=== PATIENT | female | born 1945 | race Caucasian/White ===

== ENCOUNTER 2022-05-17 11:23 | Emergency (ER) | payer OTHER, SELFPAY ==
[2022-05-17] VITALS (17 sets, daily range): BP systolic 175–222; BP diastolic 79–100; PULSE 75–86; RESP 17–35; TEMP 36.3; O2SAT 94–97; BMI 32.8
--- NOTE | 2022-05-17 11:33 | DI.RAD.S_ITS ---
PROCEDURE: XR ACUTE ABDOMEN SERIES INDICATIONS: constipation TECHNIQUE: One view chest and two views of the abdomen were acquired. COMPARISON: None. FINDINGS: Surgical changes and devices: Median sternotomy wires are seen. Chest: Lungs are clear. Heart size is mildly enlarged. No pleural effusions. No pneumoperitoneum. Abdomen: Moderate amount of fecal stasis throughout the colon is seen extending to sigmoid colon and rectum. No gross pneumoperitoneum. No suspicious calcifications. Visualized solid organ contours appear normal. Bones: No suspicious bony lesions. IMPRESSION: Moderate constipation and fecal impaction. No gross free air. No acute cardiopulmonary pathology. Dictated by: Larry Segovia M.D. on 05/17/2022 at 12:13 Approved by: Larry Segovia M.D. on 05/17/2022 at 12:14
--- NOTE | 2022-05-17 15:48 | ED.ABDPAIN ---
HPI - Abdominal Pain General Chief Complaint: Abdominal Pain Stated Complaint: Constipation for a couple days Time Seen by Provider: 05/17/22 15:37 Source: patient Mode of arrival: Ambulatory History of Present Illness HPI narrative: Patient feels she is constipated again. Last bowel movement last Monday 3 days ago. No black or bloody stools. Patient states has history of constipation when she gets sick. She had cough cold congestion last week and felt like she was going to get constipated so she took [id number] laxatives without improvement. Is scheduled to have updated colonoscopy next year. Blood pressure noted however it is improving by the time I saw patient 177/81. Patient has not taken her blood pressure medications today. Patient prefers not to have enema. Would like to have GoLYTELY to take home to try for effect. Patient missed her appointment today for her warfarin levels/INR. Agrees to have it done here today Related Data Home Medications Medication Instructions Recorded Confirmed aspirin 81 mg chewable tablet 81 mg PO DAILY 05/17/22 05/17/22 enalapril maleate 10 mg tablet 10 mg PO DAILY 05/17/22 05/17/22 furosemide 20 mg tablet 40 mg PO DAILY 05/17/22 05/17/22 levothyroxine 50 mcg tablet 50 mcg PO DAILY 05/17/22 05/17/22 lovastatin 20 mg tablet 20 mg PO DAILY 05/17/22 05/17/22 omeprazole 20 mg capsule,delayed 20 mg PO DAILY 05/17/22 05/17/22 release potassium chloride 10 mEq 10 meq PO DAILY 05/17/22 05/17/22 tablet,extended release thyroid (pork) 60 mg tablet 60 mg PO DAILY 05/17/22 05/17/22 (Higginson Thyroid) warfarin 5 mg tablet 5 mg PO QDRHS 05/17/22 05/17/22 Allergies Allergy/AdvReac Type Severity Reaction Status Date / Time No Known Drug Allergies Allergy Verified 05/17/22 11:28 Review of Systems Review of Systems Narrative: GENERAL: negative chills, fatigue, malaise, fever, sweats. HEENT: negative sinus pain, ear pain, sore throat RESPIRATORY: negative dyspnea, cough CARDIOVASCULAR: negative chest pain, palpitations GASTROINTESTINAL: negative nausea, vomiting, abdominal pain, positive constipation : negative dysuria, frequency, hematuria MUSCULOSKELETAL: negative muscle or bony pain SKIN: negative rash, skin lesions NEUROLOGIC: negative weakness, numbness ROS Unobtainable: All systems reviewed & are unremarkable except as noted in HPI and below Patient History Social History Smoking Status: Unknown if ever smoked Smoking Status: Unknown if ever smoked alcohol intake frequency: holidays/special occasions only Substance Use Type: does not use Exam Narrative Exam Narrative: GENERAL: in no distress, not toxic not dyspneic HEAD: Normocephalic. EYES: Pupils equal round No scleral icterus. ENT: Mucous membranes moist. NECK: Trachea midline. CARDIOVASCULAR: Regular rate and rhythm without murmurs RESPIRATORY: Clear to auscultation. Breath sounds equal bilaterally. No wheezes, rales, or rhonchi. GASTROINTESTINAL: Abdomen soft, non-tender, bowel sounds present no peritoneal signs no pain out of proportion to exam. No peritoneal signs BACK: No flank tenderness. NEURO: AOx4. SKIN: Warm and dry PSYCH: Not anxious, is cooperative Initial Vital Signs Initial Vital Signs: Vital Signs Temperature 97.3 F L 05/17/22 11:28 Pulse Rate 79 05/17/22 11:28 Respiratory Rate 17 05/17/22 11:28 Blood Pressure 175/94 H 05/17/22 11:28 Pulse Oximetry 95 05/17/22 11:28 Oxygen Delivery Method 05/17/22 11:28 Course Course Course Narrative: No new issues during course of stay Orders Ordered: Discontinued Medications Enalapril Maleate (Enalapril 5 Mg Tablet) 10 mg PO DAILY RUFINO Enalapril Maleate (Enalapril 5 Mg Tablet) 10 mg PO NOW ONE Stop: 05/17/22 16:15 Last Admin: 05/17/22 16:19 Dose: 10 mg Documented By: RB Losartan Potassium (Losartan 25 Mg Tablet) 25 mg PO NOW ONE Stop: 05/17/22 15:48 Last Admin: 05/17/22 16:08 Dose: 25 mg Documented By: RB Polyethylene Glycol/Electrolytes ([id number]/Sod Sulf,Bicarb,Cl/Kcl 4,000 Ml Solution) 2,000 ml PO NOW ONE Stop: 05/17/22 15:45 Last Admin: 05/17/22 16:09 Dose: 2,000 ml Documented By: RB Reevaluation(s) Reevaluation #1: Reviewed x-ray results with patient. No blood work indicated other than doing patient's INR levels as she missed her appointment today. Patient and agree for taking home GoLYTELY, she does not want to try medications here. She will take her daily blood pressure medication now. Return precautions reviewed with her. They desire discharge home. Time: 15:51 Vital Signs Vital signs: Vital Signs - 8 hr 05/17/22 11:28 05/17/22 14:48 05/17/22 14:49 Temperature 97.3 F L Pulse Rate 79 85 86 Respiratory Rate 17 Blood Pressure 175/94 H Pulse Oximetry 95 95 97 Oxygen Delivery Method Room Air 05/17/22 14:49 05/17/22 14:57 05/17/22 14:57 Temperature Pulse Rate 81 Respiratory Rate 35 H Blood Pressure 222/100 H 204/82 H Pulse Oximetry 97 Oxygen Delivery Method 05/17/22 15:00 05/17/22 15:00 05/17/22 15:15 Temperature Pulse Rate 79 79 Respiratory Rate 29 H 25 H Blood Pressure 181/84 H Pulse Oximetry 96 96 Oxygen Delivery Method 05/17/22 15:15 05/17/22 15:17 05/17/22 15:17 Temperature Pulse Rate 80 Respiratory Rate 30 H Blood Pressure 180/79 H 190/88 H Pulse Oximetry 95 Oxygen Delivery Method 05/17/22 15:30 05/17/22 15:30 05/17/22 15:45 Temperature Pulse Rate 79 77 Respiratory Rate 30 H 27 H Blood Pressure 190/81 H Pulse Oximetry 96 96 Oxygen Delivery Method 05/17/22 15:45 05/17/22 16:08 05/17/22 16:00 Temperature Pulse Rate 77 Respiratory Rate Blood Pressure 177/81 H 175/79 H 175/79 H Pulse Oximetry Oxygen Delivery Method 05/17/22 16:00 05/17/22 16:19 05/17/22 16:16 Temperature Pulse Rate 75 79 80 Respiratory Rate Blood Pressure 196/91 H Pulse Oximetry 94 95 Oxygen Delivery Method 05/17/22 16:16 05/17/22 16:20 05/17/22 16:20 Temperature Pulse Rate 79 Respiratory Rate Blood Pressure 213/97 H 196/91 H Pulse Oximetry 95 Oxygen Delivery Method 05/17/22 16:30 05/17/22 16:30 05/17/22 16:45 Temperature Pulse Rate 77 80 Respiratory Rate Blood Pressure 189/88 H Pulse Oximetry 97 96 Oxygen Delivery Method 05/17/22 16:45 Temperature Pulse Rate Respiratory Rate Blood Pressure 182/84 H Pulse Oximetry Oxygen Delivery Method MDM - Abdominal Pain Differential Diagnosis Differential diagnosis: Likely abdominal pain, constipation and small bowel obstruction Lab Data Labs: Lab Results 05/17/22 Range/Units 16:15 PT 30.1 H (10.1-12.7) SECONDS INR 2.6 H (0.9-1.3) APTT 40 H (26-36) SECONDS Imaging Data Abdominal x-ray: Radiologist's Impression: [address] [address] XRay Report Signed Patient: Janae Tena MR#: [id number] : 1945 Acct:[id number] Age/Sex: 76 / F Date of Service: 05/17/22 Loc: ED Accession Number: [id number] ?? Procedure: XR acute abdomen series Ordering Provider: Tomer Teran MD PROCEDURE:? XR ACUTE ABDOMEN SERIES ? INDICATIONS:? constipation ? TECHNIQUE:? One view chest and two views of the abdomen were acquired.? ? COMPARISON:? None. ? FINDINGS:? ? Surgical changes and devices:? Median sternotomy wires are seen. ? Chest:? Lungs are clear.? Heart size is mildly enlarged.? No pleural effusions.? No pneumoperitoneum.? ? Abdomen:? Moderate amount of fecal stasis throughout the colon is seen extending to sigmoid colon and rectum.? No gross pneumoperitoneum.? No suspicious calcifications.? Visualized solid organ contours appear normal.? ? Bones:? No suspicious bony lesions.? ? IMPRESSION:? Moderate constipation and fecal impaction.? No gross free air.? No acute cardiopulmonary pathology. ? ? Dictated by: Larry Segovia M.D. on 05/17/2022 at 12:13 ? ? Approved by: Larry Segovia M.D. on 05/17/2022 at 12:14 ? [facility] Narrative Medical decision making narrative: Appropriate for discharge home. Examined and imaging are reassuring otherwise I clinically is constipation. Patient will call for outpatient follow-up colonoscopy. Patient needed INR levels done today because she missed her appointment. Blood pressure noted because she did not take her blood pressure medication today. Blood pressure medications were given to her today and blood work done. Patient preferred GoLYTELY for home use. Return precautions reviewed with patient and . They desire discharge home Discharge Plan Departure Patient Disposition: Home Clinical Impression: Constipation Instructions: DI for Constipation Activity Restrictions/Additional Instructions: Keep well hydrated. See family doctor for referral to have your updated colonoscopy. Please use provided GoLYTELY for effect/bowel movement. If no improvement may return here for reassessment and possible enema. Or you may take [id number] home enema. Return if worse if any questions or concerns Prescriptions: No Action enalapril maleate 10 mg tablet 10 mg PO DAILY furosemide 20 mg tablet 40 mg PO DAILY lovastatin 20 mg tablet 20 mg PO DAILY omeprazole 20 mg capsule,delayed release(DR/EC) 20 mg PO DAILY potassium chloride 10 mEq tablet extended release 10 meq PO DAILY aspirin [Aspirin Child] 81 mg Tablet,Chewable 81 mg PO DAILY warfarin [Coumadin] 5 mg Tablet 5 mg PO QDRHS levothyroxine 50 mcg Tablet 50 mcg PO DAILY thyroid (pork) [Higginson Thyroid] 60 mg Tablet 60 mg PO DAILY Visit Report Forms: Patient Portal/API
[2022-05-17] MEDS: LOSARTAN 25 MG TABLET PO (16:08)
[2022-05-17] MEDS: PEG3350/SOD SULF,BICARB,CL/KCL 4,000 ML SOLUTION 2000 ML PO (16:09)
[2022-05-17] MEDS: ENALAPRIL 5 MG TABLET 10 MG PO (16:19)
[2022-05-17 16:29] LABS: INR 2.6 (0.9-1.3); Prothrombin Time 30.1 SECONDS (10.1-12.7)
[2022-05-17 16:31] LABS: PTT Partial Thromboplastin Tim 40 SECONDS (26-36)
== END 2022-05-17 17:09 | disposition home or self-care (01) ==
PROVIDERS: Emergency Provider Emergency Medicine
DX: K59.00 Constipation, unspecified (principal)
CPT/HCPCS: 74022; 85610; 85730; 99283

== ENCOUNTER → 2023-04-27 13:08 | Outpatient (CLI) | payer OTHER, SELFPAY ==
[2023-04-27 13:40] LABS: Add Manual Diff / Slide Review NO; Basophils Absolute Auto 0 /uL (0-100); Basophils Percent Auto 0.5 % (0-2); Eosinophils Absolute Auto 100 /uL (0-450); Eosinophils Percent Auto 0.7 % (2-4); Hematocrit 42.8 % (36-46); Hemoglobin 14.6 g/dL (12.0-16.0); Lymphocytes Absolute Auto 1700 /uL (1100-4500); Lymphocytes Percent Auto 23.2 % (25-40); Mean Corpuscular Hemoglobin 30.9 PG (26-34); Mean Corpuscular Volume 90.8 fL (80-100); Monocytes Absolute Auto 1300 /uL (0-900); Neutrophils Absolute Auto 4400 /uL (1500-7000); Neutrophils Percent Auto 58.6 % (50-75); Platelet Count 256 X10^3/uL (150-400); Red Blood Cell Count 4.72 X10^6/uL (4.0-5.2); Red Cell Distribution Width 14.3 % (11.6-14.8); White Blood Cell Count 7.5 X10^3/uL (4.5-11.0)
[2023-04-27 13:49] LABS: Hemoglobin A1C% w Est Avg Glu 5.9 % (4.0-6.0)
[2023-04-27 14:12] LABS: BUN Creatinine Ratio 13.4 (6-22); Blood Urea Nitrogen 11 mg/dL (7-17); Calcium 9.9 mg/dL (8.4-10.2); Carbon Dioxide 29 mmol/L (22-32); Chloride 99 mmol/L (98-107); Estimated Glomerular Filt Rate > 60 mL/min (>60); Glucose 88 mg/dL (80-110); HEMOLYSIS < 15 (0-50); Potassium 3.9 mmol/L (3.4-5.1); Sodium 137 mmol/L (137-145)
[2023-04-27 14:45] LABS: Appearance Urine UA CLEAR; Bilirubin Urine UA NEGATIVE (NEGATIVE); Color Urine UA YELLOW; Glucose Urine UA NEGATIVE (Negative); Ketones Urine UA NEGATIVE (NEGATIVE); Leukocyte Esterase Urine UA NEGATIVE (NEGATIVE); Nitrite Urine UA NEGATIVE (Negative); Occult Blood Urine UA NEGATIVE (Negative); Protein Urine UA NEGATIVE (Negative); Specific Gravity Urine UA <=1.005 (1.000-1.035); Urobilinogen Urine UA 0.2 E.U./dL (0.2)
[2023-04-27 15:03] LABS: Bacteria Urine Occasional (0-1); Culture Indicated Urine Specimen Cultured; RBC Urine None Seen (0-5/HPF); Squamous Epithelial Cell Urine None Seen (0-5/HPF); WBC Urine 0-1/HPF (0-5/HPF)
== END ==
PROVIDERS: PCP Nurse Practitioner Family; Referring Provider Orthopaedic Surgery; Visit Provider Orthopaedic Surgery
DX: Z01.818 Encounter for other preprocedural examination (principal); R73.9 Hyperglycemia, unspecified; Z01.812 Encounter for preprocedural laboratory examination; N39.0 Urinary tract infection, site not specified
CPT/HCPCS: 36415; 80048; 81001; 83036; 85025; 87086; 93005; 93010

== ENCOUNTER 2023-08-22 11:25 | Day surgery (SDC) | payer OTHER, SELFPAY ==
[2023-08-08 09:42] VITALS: BMI 34.0
[2023-08-22] VITALS (11 sets, daily range): BP systolic 131–166; BP diastolic 62–87; PULSE 69–78; RESP 11–20; TEMP 35.9–37.2; O2SAT 92–97; BMI 33.0
--- NOTE | 2023-08-22 06:45 | DI.RAD.S_ITS ---
PROCEDURE: XR KNEE RT 1TO2V INDICATIONS: TKA TECHNIQUE: 2 view(s) of the knee acquired. COMPARISON: [facility] Mike Ruff, MARIA LUISA, XR KNEE ARTHRITIC SERIES BI, 02/16/2023, 13:33. FINDINGS: Bones: Patient is status post knee joint arthroplasty. Hardware components are in expected positions. Visualized bony structures are intact. Soft tissues: Overlying postoperative changes are noted. IMPRESSION: Expected post-operative appearance of a knee arthroplasty. Approved by: Kevyn Quinn M.D. on 08/22/2023 at 20:25
[2023-08-22] MEDS: ACETAMINOPHEN 325 MG TABLET 975 MG PO (13:13)
[2023-08-22] MEDS: LACTATED RINGERS 1,000 ML 42 ML IV ×2 (13:13→17:00)
[2023-08-22] MEDS: CELECOXIB 200 MG CAPSULE PO (13:14)
[2023-08-22 13:50] LABS: INR 1.1 (0.9-1.3); Prothrombin Time 12.5 SECONDS (9.4-12.5)
[2023-08-22 13:57] LABS: Alanine Aminotransferase 77 IU/L (<35); Albumin 4.1 g/dL (3.5-5.0); Albumin Globulin Ratio 1.4 (1.0-2.8); Alkaline Phosphatase 64 U/L (38-126); Aspartate Aminotransferase 58 IU/L (14-36); BUN Creatinine Ratio 11.3 (6-22); Bilirubin Total 0.7 mg/dL (0.2-1.3); Blood Urea Nitrogen 9 mg/dL (7-17); Calcium 8.7 mg/dL (8.4-10.2); Carbon Dioxide 29 mmol/L (22-32); Chloride 106 mmol/L (98-107); Estimated Glomerular Filt Rate > 60 mL/min (>60); Glucose 89 mg/dL (80-110); HEMOLYSIS < 15 (0-50); PTT Partial Thromboplastin Tim 47 SECONDS (25.1-36.5); Potassium 3.8 mmol/L (3.4-5.1); Sodium 139 mmol/L (137-145); Total Protein 7.1 g/dL (6.3-8.2)
[2023-08-22] MEDS: VANCOMYCIN 1,000 MG/200 ML PIGGYBACK 200 MG IV (14:31)
--- NOTE | 2023-08-22 15:59 | PM.PREOP ---
Pre-operative Note Interval Note History & Physical reviewed/Exam performed by Physician: Yes Changes to H&P: No H&P completed within 30 days and has changed as indicated here:: patient has a St. Yosi Valve, bridging with lovenox
--- NOTE | 2023-08-22 16:03 | PM.OP.1 ---
Operative Date/Time/Diagnoses Date of procedure: 08/22/23 Time of procedure: 16:00 Pre-op diagnosis: right knee OA Post-op diagnosis: same Procedure & Clinicians Procedure: right total knee arthroplasty Same procedure as scheduled: Yes Indications: The patient has had progressively worsening right knee pain with radiographic changes consistent with arthritis. Non-operative management has failed and the patient has requested total knee replacement. The risks, benefits and alternatives to surgery were discussed with the patient prior to proceeding. Risks discussed included, but were not limited to, failure to relieve pain, stiffness, infection, nerve damage, deep venous thrombosis, pulmonary embolism, stroke, coma, heart attack, permanent paralysis and , as well as the potential need for eventual revision of the prosthetic. Surgeon: Faith Matthew Compensation Consulting Manager: Enrique Schmidt Anesthesia Type: General Operative Notes Findings: Severe right knee osteoarthritis, good stability, mild bleeding Closure Type: primary Specimen(s): none sent Prosthetic devices, grafts, tissues, transplants, or devices: Size 5 femur, size 4 tibia, +9 poly, 32 x 7-1/2 mm patella Estimated Blood Loss (mL): 250 Blood products transfused: none Tourniquet time (min): 102 Procedure in detail: The patient was seen in the pre-operative area, where the patient identified the right knee as the operative site and this was marked with my initials. The patient received pre-operative antibiotics, and was taken to the operating room and placed on the operative table in the supine position. After satisfactory anesthesia, a part time out was performed. The right leg was encircled with a tourniquet about the proximal thigh, and the leg was prepared from the toes to the tourniquet with ChloroPrep in the usual fashion and draped through sterile drapes. The leg was elevated and exsanguinated with Eschmark bandage and the tourniquet inflated to [250] mmHg pressure. A PA was used during the procedure and was essential for intraoperative retraction and safe implantation of the components. The knee was approached through an approximately 18 cm incision centered over the patella and carried into the knee through a medial parapatellar arthrotomy. Portion of the medial and lateral meniscus was resected. Soft tissue was carefully mobilized around the patella the patella was measured with a caliper. Bone was resected from the patella and the patellar height was reconstituted with up an appropriate sized patellar component. A cover was then placed on the patella. A small amount of additional medial and lateral meniscus was resected. Reed pins were placed for navigation including 2 in the distal femur and the tibial guide was pinned to the proximal tibia and then an out supervisor inventory merchandising was placed for navigation. Data was carefully collected on the knee. The patient was placed her range of motion we did stressed and non stressed range of motion. The knee was meticulously mapped. A plan was taken and optimized. Cori robotic bur was used to do the distal femoral resection. It looked like an appropriate distal femoral cut and the cut was made without difficulty. The rotation was assessed and the appropriate size femoral guide was placed on the distal femur and finishing cuts were made. There was no evidence of notching. The anterior, posterior and chamfer cuts were then made. The posterior osteophytes and soft tissues were then removed. The posterior capsule was injected with part of a mixture of 60 ml 0.25% Marcaine mixed with 20 ml Exparel for post operative pain control. The remainder of this mixture was injected into the capsule and subcutaneous tissues during cement curing. The tibia was prepared and the tibial cutting guide was meticulously navigated in order to optimize the tibial cut. Cut was made without difficulty. The rotation was assessed. The patient was placed in extension residual medial and lateral meniscus as well as any residual bone was carefully resected. [No] additional tibia was resected. Hemostasis was achieved especially posteriorly. Additional local was injected into the posterior capsule. The femoral component trial was placed and the notch was finished. Trial tibial and femoral components were then placed and the knee placed through a range of motion. Range of motion was [0-120], with good stability throughout the range. The trials were then removed, and the tibia was finished. The bone was prepared with pulsatile lavage, and dried with a sponge. Cement was applied and the final prosthetics placed. Excess cement was removed during and after cement curing. A brief Betadine soak was performed. After confirming there was no extruded cement posteriorly, the final tibial insert was placed. The knee was copiously irrigated and the tourniquet deflated. Hemostasis was obtained with the [Aquamantys system]. The capsule was closed with interrupted Vicryl and nonabsorbable suture. The subcutaneous layer was closed with barbed sutures, and the skin with a running 3-0 V-Lock suture and skin hugo. A natan dressing was applied and the patient was taken to recovery having tolerated the procedure well. Complications: none Post-operative Condition: stable Disposition: Acute Care Plan for aftercare: The patient will be maintained on a standard total knee replacement protocol with weight bearing as tolerated. The patient will receive Lovenox starting tomorrow night for 1 dose and then 1 dose on morning, begin warfarin tomorrow a.m. and sequential compression devices for DVT prophylaxis. The patient will be discharged home when safe for the home environment.
--- NOTE | 2023-08-22 16:16 | SUR.OPER ---
Supine on padded OR bed. Pillow under head, arms secured on padded armboards <90 degree abduction. Safety belt across torso. Non-operative leg secured with tape over blanket over lower leg. Operative leg secured in Bernard positioner. Foam padded brace at thigh of operative leg.
[2023-08-22] MEDS: CEFAZOLIN 2 GM/100 ML PREMIX 100 ML IV ×2 (16:36→20:33)
[2023-08-22] MEDS: TRANEXAMIC ACID 1,000 MG VIAL 1000 MG INJ ×2 (16:39→18:30)
[2023-08-22] MEDS: BUPIVACAINE 0.25% (PF) 60 ML, EPINEPHrine 0.3 MG INJ (16:50)
[2023-08-22] MEDS: BUPIVACAINE LIPOSOME 266 MG/20 ML VIAL INJ (16:51)
[2023-08-22] MEDS: LACTATED RINGERS 1,000 ML 100 ML IV (20:33)
[2023-08-22] MEDS: DOCUSATE 100 MG CAPSULE PO (20:34)
[2023-08-22] MEDS: ASPIRIN EC 81 MG TABLET PO (20:34)
[2023-08-22] MEDS: OXYCODONE IR 5 MG TABLET PO (22:39)
[2023-08-23] MEDS: CEFAZOLIN 2 GM/100 ML PREMIX 100 ML IV (03:59)
[2023-08-23 04:15] VITALS: BP 115/55; PULSE 99; RESP 16; TEMP 36.2; O2SAT 95
[2023-08-23] MEDS: PANTOPRAZOLE DR 20 MG TABLET PO (05:40)
[2023-08-23 05:42] LABS: Hematocrit 35.6 % (36-46)
--- NOTE | 2023-08-23 07:00 | P.PN_ITS ---
Subjective Subjective Date Patient Seen: 08/23/23 Time Patient Seen: 07:00 Interval history: Pt lying in bed, said she didn't sleep at all last night d/t pain and noise. She has not been OOB or worked w/ PT yet. She is chronically anticoagulated w/ warfarin d/t St Yosi's valve; warfarin to restart today, and enoxaparin bridge to restart tonight. Pt is unclear about bridging instructions. She has no help at home and will not have consistent help available for about 1 1/2 weeks. Exam Vital Signs (past 8 hours): - 08/22/23 23:08 08/23/23 04:15 Temperature 96.9 F L 97.2 F L Pulse Rate 71 99 H Respiratory Rate 18 16 Blood Pressure 131/62 115/55 L Pulse Oximetry 93 95 Oxygen Flow Rate 1 1 Oxygen Delivery Method Nasal Cannula Oxygen Flow Rate 1 Narrative Exam Narrative: 3/5 strength in hip flexors, quadriceps, hamstrings; 4/5 DF, PF, EHL on right. Sensation to light touch intact throughout RLE; calf soft and compressible. ROSITA not functioning when I entered room, but re-started and was able to function correctly. Minimal bloody drainage. Objective Labs 08/23/23 05:30 08/22/23 13:34 Labs: Laboratory Results - last 24 hr 08/22/23 08/23/23 13:34 05:30 Hgb 12.0 Hct 35.6 L PT 12.5 INR 1.1 APTT 47 H Sodium 139 Potassium 3.8 Chloride 106 Carbon Dioxide 29 BUN 9 Creatinine 0.80 Estimated GFR > 60 BUN/Creatinine Ratio 11.3 Glucose 89 Calcium 8.7 Total Bilirubin 0.7 AST 58 H ALT 77 H Alkaline Phosphatase 64 Total Protein 7.1 Albumin 4.1 Globulin 3.0 Albumin/Globulin Ratio 1.4 [facility] Medical History (Updated 08/08/23 @ 11:55 by Siena Deng RN) Mitral valve stenosis Skin cancer Osteoarthritis Hypothyroidism Pre-diabetes Acid reflux Diverticulosis HLD (hyperlipidemia) HTN (hypertension) Surgical History (Updated 08/23/23 @ 07:05 by Sylvie Kong PA-C) H/O aortic valve replacement (1999) Hx of vein stripping History of total left knee replacement Social History household members: spouse Smoking Status: Former smoker alcohol intake: current Assessment & Plan Post-op Assessment and plan (1) Total knee replacement status: Assessment and Plan narrative: - Pt will need SNF placement d/t social situation and need for enoxaparin bridging w/ warfarin. She had difficulty with this schedule prior to surgery and ended up giving herself enoxaparin on morning of procedure. Recommend SNF at least until bridging completed to avoid issues. - Work w/ PT, WBAT to right leg. - Continue multimodal pain control w/ ice, APAP, and oxycodone. Postoperative Procedures: Procedures Operation Date: 08/22/23 13:15 Actual Procedure Side Surgeon p Total Knee Arthroplasty - Robot Right Faith Matthew MD Postoperative day: 1
[2023-08-23] MEDS: ONDANSETRON 4 MG/2 ML INJ IV (07:59)
--- NOTE | 2023-08-23 08:35 | PT.IIE ---
Current Diagnoses Unilateral primary osteoarthritis, right knee (08/22/23) Presence of unspecified artificial knee joint (08/22/23) Surgery Performed Operation Date: 08/22/23 13:15 Actual Procedures p Total Knee Arthroplasty - Robot(Right) - Faith Matthew MD Surgical History (Last Updated 08/08/23 @ 11:55 by Siena Deng, RN) H/O aortic valve replacement (1999) History of total left knee replacement Hx of vein stripping Medical History (Last Updated 08/08/23 @ 11:55 by Siena Deng RN) Acid reflux Diverticulosis HLD (hyperlipidemia) HTN (hypertension) Hypothyroidism Mitral valve stenosis Osteoarthritis Pre-diabetes Skin cancer Physical Therapy Inpatient Evaluation/Re-Eval M1 PT/OT-IP Prior Functional Status Start: 08/23/23 10:47 Freq: NEEDED Status: Active Protocol: Document 08/23/23 08:35 AB (Rec: 08/23/23 11:01 AB [id number]) Medical Review Prior Functional Status Medical History Reviewed Yes Communication able to make needs known Mobility and Gait pt stated that she was modified independent with all mobilities and ambualtion using a FWW indoors and a 4WW outdoors Social History Household Members spouse Living Arrangements House Number of Floors (Floors) One Floor Number of Stairs To Enter/Railing? 1 step to enter Home Environment High Toilet,Walk in Shower Home Equipment Front Wheel Walker,Four Wheel Walker,Hand Held Shower,Grab Bars In Shower Additional Social History Comment pt stated that she lives by herself, but per nurse, pt lives with spouse but unavailable to assist her at home at this time M2 PT-IP Current Condition Start: 08/23/23 10:47 Freq: NEEDED Status: Active Protocol: Document 08/23/23 08:35 AB (Rec: 08/23/23 11:01 AB [id number]) Physical Therapy Current Condition Current Condition Evaluation Date 08/23/23 Treatment Diagnosis s/p R TKA; difficulty in walking Onset Date 08/22/23 M3 PT-IP Subjective Start: 08/23/23 10:47 Freq: NEEDED Status: Active Protocol: Document 08/23/23 08:35 AB (Rec: 08/23/23 11:01 AB [id number]) Subjective Physical Therapy Visit Type Type Initial Evaluation Visit Start Time 08:35 Visit Stop Time 09:35 Number of OAKES MACHINE OPERATOR Visits 0 Physical Therapy Visit Comments Patient Comments agreeable to do PT Therapy Pain Assessment Pain When Pain Assessed At Rest Pain Present Pain Present Pain Reported Location Right Knee Intensity 6 Scale Used Numeric (0 - 10) Pain Behaviors Guarding,Holding Area,Wincing Pain Management Techniques Apply Cold,Distraction, Modification of Treatment,Re- positioning,Timing of Activity with Medications M4 PT-IP Mobility and Gait Start: 08/23/23 10:47 Freq: NEEDED Status: Active Protocol: Document 08/23/23 08:35 AB (Rec: 08/23/23 11:01 AB [id number]) PT-Bed Mobility Assessment Supine to Sit Supine to Sit Standby Assistance PT-Transfer Assessment Sit to and From Stand Sit to and from Stand Maximum Assistance,1 Person Assistance,2 Person Assistance ,Use of Upper Extremities Equipment Transfer Assistive Device Gait Belt,Front Wheeled Walker Orthotic/Prosthetic Devices or Brace: No Transfers Transfer Destination Chair Transfer Technique Stand Step Pivot Transfer Ability Level of Assist Maximum Assistance,2 Person Assistance,Use of Upper Extremities Comments Mobility Comments pt supine in bed and agreeable to do PT. obtained PLOF and home set up from pt. post-op folder provided and reviewed contents. BP: 114/56. pt completed supine to sit SBA and max cues for techniques. pt was able to sit on EOB CGA. completed sit to stand max A x 1-2 and max cues and needed 2 attempts to complete task. max A for standing balance with (+) R knee buckling needing stabilization from PT and max cues for quads activation. attempted to ambulate but unable and pt needing to sit down on EOB. NAC in room to assist. pt completed sit to stand again max A and max cues and attemped to ambulate but only able to take 2 steps using FWW max A x 2 and max cues and pt needing to sit back on EOB. c/o increase R knee pain. positioned chair next to pt. completed sit to stand from EOB max A x 1-2 and max cues x 2 attempts and step transer to chair using fWW max A x 2 and max cues. continues to have R knee buckling. pt with difficutly following directions and requiring repeated cues with all tasks. positioned pt on the chair. call light and table placed within reach. Gait Assessment Comments Gait Comments unable; only able to take ~ 2 step using FWW max A x 2 and max cues; (+) R knee buckling PT-Balance Assessment Sitting Balance and Reactions Static Sitting Balance Ability Good Dynamic Sitting Balance Ability Good Standing Balance and Reactions Static Standing Balance Ability Poor Dynamic Standing Balance Ability Poor Device Used FWW M5 PT-IP Objective Assessments Start: 08/23/23 10:47 Freq: NEEDED Status: Active Protocol: Document 08/23/23 08:35 AB (Rec: 08/23/23 11:01 [id number]) Orientation Orientation/Cognition Level of Alertness Alert Orientation Name,Place,Situation Safety Awareness Decreased Safety Awareness Memory Description Short Term Impaired Gross Range of Motion Lower Extremity ROM Assessment Right Impaired Impairments R knee flexion: ~ 40 deg R knee extension: ~ 20 deg less to 0 Strength Lower Extremity Strength Assessment Right Impaired Hip 3-/5 Knee 3/5 Sensation Assessment Sensation Gross Sensation Right LE Impaired Sensation Description Numbness Comments Sensation Comments c/o R upper thigh and knee numbness Muscle Tone Muscle Tone WNL Yes M6 PT-IP Treatment Start: 08/23/23 10:47 Freq: NEEDED Status: Active Protocol: Document 08/23/23 08:35 AB (Rec: 08/23/23 11:01 [id number]) Physical Therapy Treatment Exercises Exercises Quad Sets,Heel Slides Education Education Provided Precautions,Weight Bearing Status,Post-Op Packet,Safety M7 PT-IP Assessment and Plan Start: 08/23/23 10:47 Freq: NEEDED Status: Active Protocol: Document 08/23/23 08:35 AB (Rec: 08/23/23 11:01 [id number]) PT Summary Assessment and Plan Potential Rehabilitation Potential Fair Status of Condition at Evaluation Evolving Summary Impairments Pain,ROM,Strength,Balance, Coordination,Sensation,Tone, Cognition,Bed Mobility, Transfers,Gait,Activity Tolerance Assessment Summary pt is a 78 y/o F s/p R TKA POD 1. pt is WBAT on RLE. pt requiring max A x 2 with transfers using FWW and unable to ambulate at this time with (+) R knee buckling. pt will require SNF rehab at this time. will continue to assess progress. Goals Bed Mobility Goal Independent Transfer Goal Minimal Assistance,Front Wheeled Walker Gait Goal Minimal Assistance,Front Wheel Walker Gait Distance 50 Other Goals improve transfers and ambulation using FWW mod I ~ 200 ft up/down 1 step using fWW SBA Days to Meet Goals 5 Frequency of Treatment Frequency Of Treatment Twice a Day Treatment Plan Physical Therapy Treatment Plan Bed Mobility Training,Transfer Training,Gait Training, Therapeutic Exercise,Balance Retraining,Post Op Education, Discharge Planning,Hot or Cold Pack,Neuromuscular Re-ed, Coordination Retraining,Manual Therapy Weight Bearing Status Weight Bearing Status Weight Bear as Tolerated Allowed Weight Bearing Amount (enter % RLE WBAT or #) (%) Recommendations To Nursing Amount of Assist Needed 2 Person Assist Discharge Recommendations PT Discharge Recommendations SNF Rehab Transportation Needs at Discharge Wheelchair/Cabulance
[2023-08-23 08:56] VITALS: BP 124/59
[2023-08-23] MEDS: ACETAMINOPHEN 325 MG TABLET 650 MG PO ×3 (08:56→20:16)
[2023-08-23] MEDS: ENALAPRIL 5 MG TABLET 10 MG PO (08:56)
[2023-08-23] MEDS: FUROSEMIDE 20 MG TABLET 40 MG PO (08:58)
[2023-08-23] MEDS: ATORVASTATIN 20 MG TABLET 10 MG PO (08:58)
[2023-08-23] MEDS: OXYCODONE IR 5 MG TABLET PO ×3 (08:58→19:36)
[2023-08-23] MEDS: POTASSIUM CHLORIDE 10 MEQ TAB PO (08:58)
[2023-08-23] MEDS: WARFARIN 5 MG TABLET PO (08:58)
[2023-08-23] MEDS: DOCUSATE 100 MG CAPSULE PO ×2 (08:59→19:36)
[2023-08-23 09:07] VITALS: BP 124/59; PULSE 73; RESP 16; TEMP 36.6; O2SAT 94
--- NOTE | 2023-08-23 11:13 | OT.IP.EVAL ---
Current Diagnoses Unilateral primary osteoarthritis, right knee (08/22/23) Presence of unspecified artificial knee joint (08/22/23) Surgery Performed Operation Date: 08/22/23 13:15 Actual Procedures p Total Knee Arthroplasty - Robot(Right) - Faith Matthew MD Past Medical History (Last Updated 08/08/23 @ 11:55 by Siena Deng, RN) Acid reflux Diverticulosis HLD (hyperlipidemia) HTN (hypertension) Hypothyroidism Mitral valve stenosis Osteoarthritis Pre-diabetes Skin cancer Surgical History (Last Updated 08/08/23 @ 11:55 by Siena Deng RN) H/O aortic valve replacement (1999) History of total left knee replacement Hx of vein stripping Occupational Therapy Inpatient Evaluation/Re-Eval M1 PT/OT-IP Prior Functional Status Start: 08/23/23 10:47 Freq: NEEDED Status: Active Protocol: Document 08/23/23 08:35 AB (Rec: 08/23/23 11:01 AB [id number]) Medical Review Prior Functional Status Medical History Reviewed Yes Communication able to make needs known Mobility and Gait pt stated that she was modified independent with all mobilities and ambulation using a FWW indoors and a 4WW outdoors Social History Household Members spouse Living Arrangements House Number of Floors (Floors) One Floor Number of Stairs To Enter/Railing? 1 step to enter Home Environment High Toilet,Walk in Shower Home Equipment Front Wheel Walker,Four Wheel Walker,Hand Held Shower,Grab Bars In Shower Additional Social History Comment pt stated that she lives by herself, but per nurse, pt lives with spouse but unavailable to assist her at home at this time M1 PT/OT-IP Prior Functional Status Start: 08/23/23 11:18 Freq: NEEDED Status: Active Protocol: Document 08/23/23 11:18 [facility] (Rec: 08/23/23 11:39 [facility] [id number]) Medical Review Prior Functional Status Medical History Reviewed Yes Communication able to make needs known Mobility and Gait pt stated that she was modified independent with all mobilities and ambulation using a FWW indoors and a 4WW outdoors Activities of Daily Living and IADL's Pt states needing assist for her socks and shoes. Prior Functional Level (Other details) Per pt , pt's will not be available to assist her and that her daughters will not be available as well. Social History Household Members spouse Living Arrangements House Number of Floors (Floors) One Floor Number of Stairs To Enter/Railing? 2 step to enter Home Environment High Toilet,Walk in Shower Home Equipment Front Wheel Walker,Four Wheel Walker,Straight Cane,Hand Held Shower,Grab Bars In Shower M2 OT-IP Current Condition Start: 08/23/23 11:18 Freq: Status: Active Protocol: Document 08/23/23 11:18 [facility] (Rec: 08/23/23 11:39 [facility] [id number]) Occupational Therapy Current Condition Current Condition Evaluation Date 08/23/23 Treatment Diagnosis S/P R TKA Diagnosis Onset Date 08/22/23 M3 OT- IP Subjective and Pain Start: 08/23/23 11:18 Freq: Status: Active Protocol: Document 08/23/23 11:18 [facility] (Rec: 08/23/23 11:39 [facility] [id number]) OT- Subjective Occupational Therapy Visit Type Type Initial Evaluation Visit Start Time 10:35 Visit Stop Time 11:13 Occupational Therapy Visit Comments Patient Comments Pt agreed to try to stand up. Patient/Caregiver Goals To go to skilled rehab. OT Pain Assessment Pain When Pain Assessed At Rest Pain Present Pain Present Pain Reported Location Right Knee Intensity 7 Scale Used Numeric (0 - 10) M4 OT- IP ADL's Start: 08/23/23 11:18 Freq: Status: Active Protocol: Document 08/23/23 11:18 [facility] (Rec: 08/23/23 11:39 [facility] [id number]) OT [id number] Comments OT Self-Feeding Comments Not at meal time. OT ADL-Grooming General Evaluation Grooming Ability Standby Assistance Areas Needing Assistance Retrieving/Set-up of Grooming Items Comments OT Grooming Comments Pt able to go grooming needs while seated on the recliner. OT ADL-Oral Care General Eval Oral Care Ability Independent Comments Oral Care Comments While seated. OT ADL-Dressing General Eval Lower Body Dressing Ability Total Assistance Areas Needing Assistance Socks Comments OT Dressing Comments Able to show and demonstrate use of deck engineer and sock aid to assist for LB dressing needs. OT ADL-Toileting Comments OT Toileting Comments Pt would benefit from BSC at home to use. OT ADL-Bathing Comments OT Bathing Comments Sponge bath more appropriate at this time or us of rolling shower chair due decreased mobility and balance. M5 OT- IP IADL's Start: 08/23/23 11:18 Freq: Status: Active Protocol: Document 08/23/23 11:18 [facility] (Rec: 08/23/23 11:39 [facility] [id number]) OT-Instrumental Activities of Daily Living Deficits IADL Deficits Identified Deficits Home Safety Awareness Awareness of Need for Assistance at Home Good Awareness Home Safety Comments Pt a little groggy at this time and if having to go home will need 12/12 assist for all needs. Medication Management Medication Management Caregiver Administers Money Management Money Management Caregiver Provides Assistance Meal Preparation Meal Preparation Caregiver Provides Assist Solar Project Manager Solar Project Manager Caregiver Provides Assist M6 OT- IP Functional Cognition Start: 08/23/23 11:18 Freq: Status: Active Protocol: Document 08/23/23 11:18 [facility] (Rec: 08/23/23 11:39 [facility] [id number]) Cognitive Factors Limiting Selfcare Function Cognitive Ability Level of Alertness Confusional State,Drowsy Patient Orientation Name Attention Span Ability Capable of Focused Attention, Unable to Sustain Attention Ability to Follow Commands Able to Follow One Step Commands with Increased Time, Able to Follow One Step Commands with Repetition Memory Description Short Term Impaired Cognitive Comments Cognitive Assessment Comments Pt a bit groggy and needing step by step commands to follow at this time. Pt states did not sleep at all last night. Pt did not recall from just seeing PT of what to do for safety and process on trying to stand up from the recliner. Pt needing step by step commands for being able to come to stand. OT- Vision and Hearing OT- Hearing Assessment OT- Hearing Assessment WFL OT- Vision Assessment Visual Acuity Glasses All The Time Visual Attentiveness WFL Occular Pursuits WFL M7 OT- IP Mobility and Balance Start: 08/23/23 11:18 Freq: Status: Active Protocol: Document 08/23/23 11:18 [facility] (Rec: 08/23/23 11:39 [facility] [id number]) OT-Transfer Assessment Sit to and From Stand Sit to and from Stand Maximum Assistance,Total Assistance,1 Person Assistance Devices Transfer Assistive Devices Gait Belt,Front Wheeled Walker Comments Mobility Comments MAX vc for safety cues, MAX/ Total assist to get pt to stand and not able to stand all the way up at this time, as pt buckling. OT- Balance Assessment Sitting Balance and Reactions Static Sitting Balance Ability Good Dynamic Sitting Balance Ability Fair Standing Balance and Reactions Static Standing Balance Ability Poor M8 OT- IP Objective Assessments Start: 08/23/23 11:18 Freq: Status: Active Protocol: Document 08/23/23 11:18 [facility] (Rec: 08/23/23 11:39 [facility] [id number]) OT Gross Range of Motion Upper Extremity Range of Motion Assessment Within Functional Limits M9 OT- IP Assessment and Plan Start: 08/23/23 11:18 Freq: Status: Active Protocol: Document 08/23/23 11:18 [facility] (Rec: 08/23/23 11:39 [facility] [id number]) OT Summary Assessment and Plan Potential Rehabilitation Potential Good Analytic Complexity at Evaluation Moderate Summary OT Impairments Pain,Strength,Balance, Functional Cognition, Functional Mobility,Grooming, Dressing,Toileting,Bathing, Toilet Transfers,Shower Transfers,Activity Tolerance Progress Towards Goals Slow Progress due to Pain,Slow Progress due to Medical Issues,Slow Progress due to Activity Tolerance,Slow Progress due to Cognition Assessment Summary Pt MOD complexity and main barriers are pain, steps, groggy and having short term memory issues, and now needing extensive two person assist for all mobility and most of her ADL needs and RLE buckling when trying to come to stand at this time. Pt will benefit from skilled rehab rehab to continue to work on safety cues , practice use of equipment needs, and to help increase overall independence so that her family able to safely assist her at home. At this time her current level is too great for her family to be able to assist her safely. Goals Self-Feeding Goal Independent Grooming Goal Independent Dressing Goal Minimal Assistance,Upholstery Estimator, Sock Aid Toileting Goal Standby Assistance Bathing Goal Minimal Assistance Toilet Transfer Goal Contact Guard Assistance Shower Transfer Goal Minimal Assistance Days to Meet Goals 20 Frequency of Treatment Frequency Of Treatment Once a Day Treatment Plan OT Treatment Plan ADL Training,Functional Cognition Training,Functional Mobility,Patient/Family Education,Discharge Planning Discharge Recommendations OT Discharge Recommendations SNF Rehab Home Equipment Needs LB dressing equipment, BSC Transportation Needs at Discharge Wheelchair/Cabulance
[2023-08-23 12:39] VITALS: BP 122/40; PULSE 75; RESP 16; TEMP 37.4; O2SAT 96
--- NOTE | 2023-08-23 13:00 | PT.IPTN ---
Current Diagnoses Unilateral primary osteoarthritis, right knee (08/22/23) Presence of unspecified artificial knee joint (08/22/23) Surgery Performed Operation Date: 08/22/23 13:15 Actual Procedures p Total Knee Arthroplasty - Robot(Right) - Faith Matthew MD Physical Therapy Treatment Note M2 PT-IP Current Condition Start: 08/23/23 10:47 Freq: NEEDED Status: Active Protocol: Document 08/23/23 08:35 AB (Rec: 08/23/23 11:01 AB [id number]) Physical Therapy Current Condition Current Condition Evaluation Date 08/23/23 Treatment Diagnosis s/p R TKA; difficulty in walking Onset Date 08/22/23 M3 PT-IP Subjective Start: 08/23/23 10:47 Freq: NEEDED Status: Active Protocol: Document 08/23/23 13:00 AB (Rec: 08/23/23 15:15 AB [id number]) Subjective Physical Therapy Visit Type Type Treatment Note Visit Start Time 13:00 Visit Stop Time 13:35 Number of GIFT SHOP CLERK Visits 0 Physical Therapy Visit Comments Patient Comments agreeable to do PT Therapy Pain Assessment Pain When Pain Assessed At Rest Pain Present Pain Present Pain Reported Location Right Knee Intensity 6 Scale Used Numeric (0 - 10) M4 PT-IP Mobility and Gait Start: 08/23/23 10:47 Freq: NEEDED Status: Active Protocol: Document 08/23/23 13:00 AB (Rec: 08/23/23 15:15 AB [id number]) PT-Bed Mobility Assessment Sit to Supine Sit to Supine Maximum Assistance,2 Person Assistance,Head of Bed Elevated,Bedrails Scooting Scooting Up and Down in Bed Maximum Assistance PT-Transfer Assessment Sit to and From Stand Sit to and from Stand Maximum Assistance,1 Person Assistance,2 Person Assistance ,Use of Upper Extremities Equipment Transfer Assistive Device Gait Belt,Front Wheeled Walker Orthotic/Prosthetic Devices or Brace: No Transfers Transfer Destination Bed Transfer Technique Stand Step Pivot Transfer Ability Level of Assist Maximum Assistance,1 Person Assistance,2 Person Assistance ,Use of Upper Extremities Comments Mobility Comments pt sitting on chair. daughter and spouse in room. pt completed sit to stand from chair max A x 1-2 and max cues needing 2 attempts to be able to stand upright. pt able to take steps ~ 2 ft using FWW max A x 1-2 and max cues and needing to sit down requiring max A for controlled descent to chair. chair follow needed . pt required assist with FWW management, weight shifting and R knee stabilization to prevent knee buckling. pt stated that she will stay up on the chair. pt completed LAQs on RLE x 5 reps with 5 sec hold. educated pt regarding HEP. pt then requested to go back to bed. completed sit to stand from the chair max A x 1-2 and max cues and step transfer to chair using FWW max A x 2 and max cues. completed sit to supine max A x 2 and max cues. positioned pt in bed. call light and table placed within reach. informed nurse regarding pt's mobility level. Gait Assessment Gait Gait Assistance Required: Maximum Assistance,1 Person Assist,2 Person Assist Distance (Feet) 2 Able to Maintain Weight Bearing Status Yes During Gait Assistive Devices Assistive Device Gait Belt,Front Wheeled Walker Orthotic/Prosthetic Devices or Brace: No Gait Deviations General Gait Pattern Antalgic,Decreased Stride Length,Decreased Feet Clearance Factors Limiting Gait Function Factors Limiting Gait Function Decreased Activity Tolerance, Decreased Strength,Difficulty Following Directions,Limited Range of Motion,Pain,Poor Balance,Poor Safety Awareness M5 PT-IP Objective Assessments Start: 08/23/23 10:47 Freq: NEEDED Status: Active Protocol: Document 08/23/23 08:35 AB (Rec: 08/23/23 11:01 AB [id number]) Orientation Orientation/Cognition Level of Alertness Alert Orientation Name,Place,Situation Safety Awareness Decreased Safety Awareness Memory Description Short Term Impaired Gross Range of Motion Lower Extremity ROM Assessment Right Impaired Impairments R knee flexion: ~ 40 deg R knee extension: ~ 20 deg less to 0 Strength Lower Extremity Strength Assessment Right Impaired Hip 3-/5 Knee 3/5 Sensation Assessment Sensation Gross Sensation Right LE Impaired Sensation Description Numbness Comments Sensation Comments c/o R upper thigh and knee numbness Muscle Tone Muscle Tone WNL Yes M6 PT-IP Treatment Start: 08/23/23 10:47 Freq: NEEDED Status: Active Protocol: Document 08/23/23 13:00 AB (Rec: 08/23/23 15:15 AB [id number]) Physical Therapy Treatment Education Education Provided Safety M7 PT-IP Assessment and Plan Start: 08/23/23 10:47 Freq: NEEDED Status: Active Protocol: Document 08/23/23 13:00 AB (Rec: 08/23/23 15:15 AB [id number]) PT Summary Assessment and Plan Potential Rehabilitation Potential Fair Summary Impairments Pain,ROM,Strength,Balance, Coordination,Sensation,Tone, Cognition,Bed Mobility, Transfers,Gait,Activity Tolerance Progress Towards Goals Slow Progress due to Pain,Slow Progress due to Medical Issues,Slow Progress due to Activity Tolerance Assessment Summary pt continues to require max A x1-2 for mobility and unable to ambulate much but completed ~ 2 ft max A x 1-2 using FWW and max cues. pt continues to have R knee buckling during standing/ambulation requiring cues for quads activation and assist for stability. pt will require SNF rehab to improve overall strength and mobility independence. Goals Bed Mobility Goal Independent Transfer Goal Minimal Assistance,Front Wheeled Walker Gait Goal Minimal Assistance,Front Wheel Walker Gait Distance 50 Other Goals improve transfers and ambulation using FWW mod I ~ 200 ft up/down 1 step using fWW SBA Days to Meet Goals 5 Frequency of Treatment Frequency Of Treatment Twice a Day Treatment Plan Physical Therapy Treatment Plan Bed Mobility Training,Transfer Training,Gait Training, Therapeutic Exercise,Balance Retraining,Post Op Education, Discharge Planning,Hot or Cold Pack,Neuromuscular Re-ed, Coordination Retraining,Manual Therapy Weight Bearing Status Weight Bearing Status Weight Bear as Tolerated Allowed Weight Bearing Amount (enter % RLE WBAT or #) (%) Recommendations To Nursing Amount of Assist Needed 2 Person Assist Discharge Recommendations PT Discharge Recommendations SNF Rehab Transportation Needs at Discharge Wheelchair/Cabulance
--- NOTE | 2023-08-23 14:38 | CM.DANOTE ---
Initial DCP Assessment Visit Note Reviewed EMR and team rounds for pt's medical status and initial anticipated d/c needs. Met with pt, spouse, and dtr at bedside to introduce self and role. Per Ortho, they anticipated pt would need SNF rehab at time of d/c due to her 's limitations in the ability to care for her postoperatively. NIGHT CLERK AUDITOR sent referral to [facility] for their review, will monitor for acceptance or not. If she does get accepted, the facility will provide transport. Payor: Aida Loving Attending: Dr. Faith Matthew Pt is a 78 year-old F post-op day 1 placed in a OPB following her R-total knee arthroplasty. She uses a cane and a walker at baseline at home, lives with her , and has a dtr who is very involved in her care coordination and support needs. Due to family's inability to help her with her postoperative care needs, they are requesting SNF rehab, as also supported by PT/OT recommendations. Pt does have all other supportive care DME in the home for post-rehab discharge. [facility]'s preference [facility], will update pt/family once we have a decision on acceptance. DCP will continue to follow and assist with SNF coordination and transport at time of d/c. Discharge Planning/Care Management CM Discharge Assessment Start: 08/23/23 14:34 Freq: Status: Active Protocol: Document 08/23/23 14:34 DPL (Rec: 08/23/23 14:37 DPL [id number]) Discharge Planning Assessment Assigned Dedicated Regional Driver AINSLEY Carrasquillo Advance Directives? Yes Advance Directives on File No History Provided By Patient,Family Member,Medical Record Has Patient been admitted in last 30 No days? Prior Living Arrangements House Household Members spouse Type of transporation used prior to Relies on Others admit Independent with ADL's No: modified independent Is patient alert and oriented? Yes Needs Assistance With Home Chores / Shopping Caregiver for Another No DME Already Rented / Owned Elevated Toilet Seat,FWW / Walker,Cane Patient/Family Preference [facility] Facility Barriers to Discharge No Discharge Plan [facility] Facility Community Services Physical Therapy,Occupational Therapy Transportation Arrangement Facility Referrals Initiated [facility] Additional Comment [facility] is reviewing If patient plan is home with home health No : Has signed face to face form been completed? If patient plan is SNF: Has PASSR been No completed? Has Agency SNF been contacted Yes Whiteboard Updated in Patient Room with Yes name and ext. # of Dedicated Regional Driver Review Status In Process Please Provide Date Initial DC 08/23/23 Assessment Was Performed Pre-Anesthesia Assessment Start: 08/08/23 09:42 Freq: Status: Active Protocol: Document 08/08/23 09:42 CAB (Rec: 08/08/23 10:35 CAB [id number]) Pre-Anesthesia Assessment Patient Information Reviewed Via Phone Assessment Assessment Completed With Patient Diagnostic Results BMP/CMP,CBC,EKG,Urinalysis Comment Labs/EKG @ 04/27/23, more recent through [facility] Primary Care Provider Aidee Niño Seen Specialist in Last 12 Months Yes Specialist Seen Banquet Captain,Orthopedist Primary Language [employer] Supervisor Required No Height 172.72 cm Weight 101.605 kg Body Mass Index (BMI) 34.0 Hearing Ability Normal Visual Assist Glasses Dentition Type Full- Upper & Lower Barriers to Learning None Hx Anesthesia Reactions No Hx Family Anesthesia Reaction Yes: Daughter - severe PONV Hx Malignant Hyperthermia No Hx Blood Transfusions No Anesthesia Review Requested Yes: Surgeon requested re: Cardiac Political Advisor No alcohol intake current alcohol intake frequency a few times a week Smoking Status Former smoker how long ago did patient quit smoking A good 20 years ago Substance Use Type does not use Pain Present Pain Reported Musculoskeletal Symptoms Abnormal Gait,Difficulty Walking,Joint Pain History of Falling (Recent or History of Yes ) Patient is completely paralyzed or No completely immobile Prosthesis or Orthotic Device Cane,Front Wheel Walker Mental Status Oriented to own ability Is patient on oxygen? No Does patient have RODRÍGUEZ/SOB No Hx Sleep Apnea No Currently Taking a Beta Scar No Hx Chest Pain No Hx SOB No Hx Syncope or Dizziness No Anti-Coagulant Therapy Yes: Warfarin-hold 08/17/23 per PCP w/bridging instructions Has a Banquet Captain Yes Cardiac Testing No Hx Pacemaker/ICD No Pacemaker Rep Required? No Cardiac Clearance Received Not Applicable Diet Type At Home Regular Dysphagia No Gastrointestinal Symptoms Reflux Bladder Pattern Incontinent Urinary Catheter Present No Hx Urinary Self Catheterization No Diabetes No HgbA1C 5.9 Date 04/27/23 Patient No Lactating No Hx Drug Resistant Organism No Presence of External or Internal Medical Yes: Mitral valve, left knee Devices prosthesis Received a COVID vaccine? No Marital Status Lives With spouse Current Living Arrangements House Number of Floors (Floors) One Floor Support System Child/Children,Spouse Does the Patient Have Assistance After Yes: Daughters will stay w/pt Surgery to assist @ DC Patient Discharge Plan Description Return Home Comment Pt not advised on length of stay per surgeon Feels Safe in Current Environment Yes Been Physically Hurt or Threatened By a No Person in Current Environment Do you have thoughts of harming yourself None or others? Are you currently considering suicide? No Do you have a plan to hurt yourself or No Plan others? Do You Have Any Spiritual Beliefs That No May Affect Your HC Choices? Do You Have Any Cultural Practices That No May Affect Your HC Choices? Comment Muslim Who Can We Speak to About Patient's Care Family, friends Identifying Code for Release of Patient Declines to issue Information Health Care Proxy/Next of Kin Norm () Anni ( daughter) Health Care Proxy Phone Number Norm: [phone] Anni: [phone] Emergency Contact Name Norm () Anni ( daughter) Emergency Contact Phone Number Norm: [phone] Anni: [phone] Advance Directives? Yes Advance Directives on File No Requested Patient Bring Advanced Yes Directives DOS Power of Supervisor Computer Operations Yes Power of Supervisor Computer Operations Name Norm Power of Supervisor Computer Operations PAC Instructions Do not shave/clip surgical site,Durable medical equipment ,Medications to take/avoid, Nasal antibiotic,No ETOH/ petroleum product on skin DOS, NPO,Post-op transportation,Pre -surgical wash,Sensory aids, Sturdy shoes/comfortable clothes,Do not bring valuables and remove jewelry
[2023-08-23 18:18] VITALS: BP 122/99; PULSE 86; RESP 16; TEMP 37.4; O2SAT 94
[2023-08-23] MEDS: ENOXAPARIN 100 MG/ML SYRINGE SUBCUT (20:16)
--- NOTE | 2023-08-23 22:41 | PC.NURSE ---
At 2203 a call was received from police dispatch regarding the patient in . Immediately, this nurse and several other nursing staff went to the room. Patient stated she was fine and did not call police. About 20 minutes later the arrived very irate. He claimed she was confused and we were not helping her. Patient is A&Ox4. There is no change in patients mentation at this time. All of patients needs are being met and she is calm, cooperative and very pleased with her care. Spouse left still very irate, refusing to apologize to staff per 's request.
[2023-08-24] VITALS (7 sets, daily range): BP systolic 129–157; BP diastolic 59–70; PULSE 71–92; RESP 16–20; TEMP 36.8–37.4; O2SAT 94–96
[2023-08-24] MEDS: PANTOPRAZOLE DR 20 MG TABLET PO (06:18)
--- NOTE | 2023-08-24 07:29 | PM.PNPO.1 ---
Subjective Subjective Date Patient Seen: 08/24/23 Time Patient Seen: 07:29 Interval history: Patient is still having mild to severe pain depending on her activity level. She notes working with Physical therapy's been very limited due to knee pain. Patient does not have assistance at home and had difficulty with the instructions regarding her bridging Lovenox/warfarin. Exam Vital Signs (past 8 hours): - 08/24/23 03:58 Temperature 99.4 F Pulse Rate 88 Respiratory Rate 20 Blood Pressure 157/70 H Pulse Oximetry 94 Oxygen Flow Rate 0 Oxygen Delivery Method Nasal Cannula Oxygen Flow Rate 0 Const General: cooperative and comfortable Orientation: alert Resp Effort & Inspection: normal respiratory effort and able to speak in complete sentences Objective Labs 08/23/23 05:30 08/22/23 13:34 PFSH Medical History Mitral valve stenosis Skin cancer Osteoarthritis Hypothyroidism Pre-diabetes Acid reflux Diverticulosis HLD (hyperlipidemia) HTN (hypertension) Surgical History H/O aortic valve replacement (1999) Hx of vein stripping History of total left knee replacement Social History household members: spouse Smoking Status: Former smoker alcohol intake: current Assessment & Plan Post-op Postoperative Procedures: Procedures Operation Date: 08/22/23 13:15 Actual Procedure Side Surgeon p Total Knee Arthroplasty - Robot Right Faith Matthew MD Postoperative day: 2 Postoperative status: marginal pain control Postoperative status narrative: Progressing slowly Postoperative plan narrative: Encourage out of bed, physical therapy-patient will be maintained on standard total knee replacement protocol with weight-bearing as tolerated. Multimodal pain management Patient is chronically anticoagulated with warfarin due to [place]'s valve. Patient to have Lovenox 100 mg b.i.d. until INR therapeutic 2.5-3.5. INR to be reached on August 25, 2023. Normal warfarin dose is 5 mg daily except on Wednesdays when patient received 7.5 mg Disposition, [facility] due to social situation need for Lovenox bridging with warfarin.
[2023-08-24] MEDS: ENOXAPARIN 100 MG/ML SYRINGE SUBCUT ×2 (09:10→20:18)
[2023-08-24] MEDS: WARFARIN 5 MG TABLET PO (09:11)
[2023-08-24] MEDS: ENALAPRIL 5 MG TABLET 10 MG PO (09:11)
[2023-08-24] MEDS: POTASSIUM CHLORIDE 10 MEQ TAB PO (09:11)
[2023-08-24] MEDS: DOCUSATE 100 MG CAPSULE PO ×2 (09:11→20:19)
[2023-08-24] MEDS: FUROSEMIDE 20 MG TABLET 40 MG PO (09:12)
[2023-08-24] MEDS: ATORVASTATIN 20 MG TABLET 10 MG PO (09:12)
[2023-08-24] MEDS: ACETAMINOPHEN 325 MG TABLET 650 MG PO ×3 (09:13→20:18)
--- NOTE | 2023-08-24 09:55 | PT.IPTN ---
Current Diagnoses Unilateral primary osteoarthritis, right knee (08/22/23) Presence of unspecified artificial knee joint (08/22/23) Surgery Performed Operation Date: 08/22/23 13:15 Actual Procedures p Total Knee Arthroplasty - Robot(Right) - Faith Matthew MD Physical Therapy Treatment Note M2 PT-IP Current Condition Start: 08/23/23 10:47 Freq: NEEDED Status: Active Protocol: Document 08/23/23 08:35 AB (Rec: 08/23/23 11:01 AB [id number]) Physical Therapy Current Condition Current Condition Evaluation Date 08/23/23 Treatment Diagnosis s/p R TKA; difficulty in walking Onset Date 08/22/23 M3 PT-IP Subjective Start: 08/23/23 10:47 Freq: NEEDED Status: Active Protocol: Document 08/24/23 10:25 TS (Rec: 08/24/23 10:38 TS [id number]) Subjective Physical Therapy Visit Type Type Treatment Note Visit Start Time 09:55 Visit Stop Time 10:25 Notes Daughter in room Number of WASTEWATER ANALYST LAB ANALYST Visits 1 Physical Therapy Visit Comments Patient Comments Pt found resting in chair, reports R knee feels more stable today, is agreeable to PT. Therapy Pain Assessment Pain When Pain Assessed At Rest Pain Present Pain Present Pain Reported M4 PT-IP Mobility and Gait Start: 08/23/23 10:47 Freq: NEEDED Status: Active Protocol: Document 08/24/23 10:25 TS (Rec: 08/24/23 10:38 TS [id number]) PT-Transfer Assessment Sit to and From Stand Sit to and from Stand Minimal Assistance,Moderate Assistance,1 Person Assistance Equipment Transfer Assistive Device Gait Belt,Front Wheeled Walker Orthotic/Prosthetic Devices or Brace: No Comments Mobility Comments Pt performed ankle pumps, quad sets and heel slides while sitting up in chair. She was educated on intensity and frequency of post-op ex. STS from chair ModA x1 with FWW, requested pt to sit and attempt again. STS x1 Izabella with cues for weight forward and LLE underneath her. She ambulated in room ~30'SBA with FWW, had no buckling on RLE. She performed steps x2 with Izabella from daughter with FWW on platform step, cues provided for sequencing. Pt was left back in bedside chair, all needs met. Gait Assessment Gait Gait Assistance Required: Standby Assistance Distance (Feet) 30 Able to Maintain Weight Bearing Status Yes During Gait Assistive Devices Assistive Device Gait Belt,Front Wheeled Walker Orthotic/Prosthetic Devices or Brace: No Gait Deviations General Gait Pattern Antalgic,Decreased Stride Length,Decreased Feet Clearance Factors Limiting Gait Function Factors Limiting Gait Function Decreased Activity Tolerance, Decreased Strength,Difficulty Following Directions,Limited Range of Motion,Pain,Poor Balance,Poor Safety Awareness Comments Gait Comments See mobility comments Stair Climbing Assessment Evaluation Level of Assist On Stairs Minimal Assistance,1 Person Assistance Devices Stair Climbing Assistive Devices Front Wheel Walker Technique/Endurance Stair Climbing Direction Ascend and Descend Number of Steps Climbed 2 Comments Stair Climbing Comments See mobility comments PT-Balance Assessment Sitting Balance and Reactions Static Sitting Balance Ability Good Dynamic Sitting Balance Ability Fair Standing Balance and Reactions Static Standing Balance Ability Fair Dynamic Standing Balance Ability Fair Device Used FWW M5 PT-IP Objective Assessments Start: 08/23/23 10:47 Freq: NEEDED Status: Active Protocol: Document 08/23/23 08:35 AB (Rec: 08/23/23 11:01 AB [id number]) Orientation Orientation/Cognition Level of Alertness Alert Orientation Name,Place,Situation Safety Awareness Decreased Safety Awareness Memory Description Short Term Impaired Gross Range of Motion Lower Extremity ROM Assessment Right Impaired Impairments R knee flexion: ~ 40 deg R knee extension: ~ 20 deg less to 0 Strength Lower Extremity Strength Assessment Right Impaired Hip 3-/5 Knee 3/5 Sensation Assessment Sensation Gross Sensation Right LE Impaired Sensation Description Numbness Comments Sensation Comments c/o R upper thigh and knee numbness Muscle Tone Muscle Tone WNL Yes M6 PT-IP Treatment Start: 08/23/23 10:47 Freq: NEEDED Status: Active Protocol: Document 08/24/23 10:25 TS (Rec: 08/24/23 10:38 TS [id number]) Physical Therapy Treatment Exercises Exercises Ankle Pumps,Quad Sets,Heel Slides Education Education Provided Safety M7 PT-IP Assessment and Plan Start: 08/23/23 10:47 Freq: NEEDED Status: Active Protocol: Document 08/24/23 10:25 TS (Rec: 08/24/23 10:38 TS [id number]) PT Summary Assessment and Plan Potential Rehabilitation Potential Fair Summary Impairments Pain,ROM,Strength,Balance, Coordination,Sensation,Tone, Cognition,Bed Mobility, Transfers,Gait,Activity Tolerance Progress Towards Goals Progressing Toward Goals Assessment Summary Janae is making good progress with her mobility. She is ModA to Izabella for STS from chair for balance and has some difficulty with transition to FWW, she does improve with cues. She progressed her gait to ~30'SBA with FWW, had no buckling on RLE. She performed steps x2 on platform step with FWW and Izabella from daughter. Daughter was instructed in STS training, gait and stair training. PT is recommending Home 24/7 vs SNF . Pt reports spouse and daughter will not be able to assist 24/7 at home and she will require SNF rehab. Goals Bed Mobility Goal Independent Transfer Goal Minimal Assistance,Front Wheeled Walker Gait Goal Minimal Assistance,Front Wheel Walker Gait Distance 50 Other Goals improve transfers and ambulation using FWW mod I ~ 200 ft up/down 1 step using fWW SBA Days to Meet Goals 5 Frequency of Treatment Frequency Of Treatment Twice a Day Treatment Plan Physical Therapy Treatment Plan Bed Mobility Training,Transfer Training,Gait Training, Therapeutic Exercise,Balance Retraining,Post Op Education, Discharge Planning,Hot or Cold Pack,Neuromuscular Re-ed, Coordination Retraining,Manual Therapy Weight Bearing Status Weight Bearing Status Weight Bear as Tolerated Allowed Weight Bearing Amount (enter % RLE WBAT or #) (%) Recommendations To Nursing Amount of Assist Needed 1 Person Assist Discharge Recommendations PT Discharge Recommendations Home with 24/7 Assist Available,Home Health,SNF Rehab,Home vs SNF Transportation Needs at Discharge Private Vehicle,Wheelchair/ Cabulance
--- NOTE | 2023-08-24 13:29 | OT.IP.TRT ---
Current Diagnoses Unilateral primary osteoarthritis, right knee (08/22/23) Presence of unspecified artificial knee joint (08/22/23) Surgery Performed Operation Date: 08/22/23 13:15 Actual Procedures p Total Knee Arthroplasty - Robot(Right) - Faith Matthew MD Occupational Therapy Treatment Note M2 OT-IP Current Condition Start: 08/23/23 11:18 Freq: Status: Active Protocol: Document 08/23/23 11:18 [facility] (Rec: 08/23/23 11:39 [facility] [id number]) Occupational Therapy Current Condition Current Condition Evaluation Date 08/23/23 Treatment Diagnosis S/P R TKA Diagnosis Onset Date 08/22/23 M3 OT- IP Subjective and Pain Start: 08/23/23 11:18 Freq: Status: Active Protocol: Document 08/24/23 13:33 [facility] (Rec: 08/24/23 13:58 [facility] [id number]) OT- Subjective Occupational Therapy Visit Type Type Treatment Note Visit Start Time 13:00 Visit Stop Time 13:33 Occupational Therapy Visit Comments Patient Comments Pt wanting to get up to use the bathroom. Patient/Caregiver Goals To go to skilled rehab. OT Pain Assessment Pain When Pain Assessed At Rest Pain Present Pain Present Pain Reported Location Right Knee Intensity 4 Scale Used Numeric (0 - 10) M4 OT- IP ADL's Start: 08/23/23 11:18 Freq: Status: Active Protocol: Document 08/24/23 13:33 [facility] (Rec: 08/24/23 13:58 [facility] [id number]) OT [id number] Comments OT Self-Feeding Comments Not at meal time. OT ADL-Grooming Comments OT Grooming Comments Pt too tired to walk to the sink and given a wash cloth to wipe her hands. OT ADL-Dressing General Eval Lower Body Dressing Ability Maximum Assistance Comments OT Dressing Comments MAXA to daiana/doff the brief over her hips. OT ADL-Toileting General Evaluation Toileting Ability Moderate Assistance Comments OT Toileting Comments Pt able to stand and wipe with assist after urinating. Pt's looking to get a BSC for the pt. OT ADL-Bathing Comments OT Bathing Comments Pt's to get pt a shower chair. M5 OT- IP IADL's Start: 08/23/23 11:18 Freq: Status: Active Protocol: Document 08/23/23 11:18 [facility] (Rec: 08/23/23 11:39 [facility] [id number]) OT-Instrumental Activities of Daily Living Deficits IADL Deficits Identified Deficits Home Safety Awareness Awareness of Need for Assistance at Home Good Awareness Home Safety Comments Pt a little groggy at this time and if having to go home will need 12/12 assist for all needs. Medication Management Medication Management Caregiver Administers Money Management Money Management Caregiver Provides Assistance Meal Preparation Meal Preparation Caregiver Provides Assist Trade Manager Trade Manager Caregiver Provides Assist M6 OT- IP Functional Cognition Start: 08/23/23 11:18 Freq: Status: Active Protocol: Document 08/24/23 13:33 [facility] (Rec: 08/24/23 13:58 [facility] [id number]) Cognitive Factors Limiting Selfcare Function Cognitive Ability Level of Alertness Alert Patient Orientation Name,Place,Situation Attention Span Ability Capable of Focused Attention, Unable to Sustain Attention Ability to Follow Commands Able to Follow One Step Commands with Increased Time, Able to Follow One Step Commands with Repetition Memory Description Short Term Impaired Cognitive Comments Cognitive Assessment Comments Pt still needing step by step cues for safety awareness for FWW use and techniques when coming to stand and sitting down. OT- Vision and Hearing OT- Hearing Assessment OT- Hearing Assessment WFL OT- Vision Assessment Visual Acuity Glasses All The Time Visual Attentiveness WFL Occular Pursuits WFL M7 OT- IP Mobility and Balance Start: 08/23/23 11:18 Freq: Status: Active Protocol: Document 08/24/23 13:33 [facility] (Rec: 08/24/23 13:58 [facility] [id number]) OT-Transfer Assessment Sit to and From Stand Sit to and from Stand Moderate Assistance,1 Person Assistance Transfers Transfer Ability Contact Guard Assistance, Minimal Assistance Technique Transfer Destination Bed,Chair Transfer Technique Stand Step Pivot Devices Transfer Assistive Devices Straight Cane,Front Wheeled Walker Comments Mobility Comments MODA to stand and LINDA for balance and mainly MAXA vc for safety for FWW and RLE positioning needs. OT- Balance Assessment Sitting Balance and Reactions Static Sitting Balance Ability Good Dynamic Sitting Balance Ability Fair Standing Balance and Reactions Static Standing Balance Ability Fair Dynamic Standing Balance Ability Fair M8 OT- IP Objective Assessments Start: 08/23/23 11:18 Freq: Status: Active Protocol: Document 08/23/23 11:18 [facility] (Rec: 08/23/23 11:39 [facility] [id number]) OT Gross Range of Motion Upper Extremity Range of Motion Assessment Within Functional Limits M9 OT- IP Assessment and Plan Start: 08/23/23 11:18 Freq: Status: Active Protocol: Document 08/24/23 13:33 [facility] (Rec: 08/24/23 13:58 [facility] [id number]) OT Summary Assessment and Plan Potential Rehabilitation Potential Good Analytic Complexity at Evaluation Moderate Summary OT Impairments Pain,Strength,Balance, Functional Cognition, Functional Mobility,Grooming, Dressing,Toileting,Bathing, Toilet Transfers,Shower Transfers,Activity Tolerance Progress Towards Goals Slow Progress due to Pain,Slow Progress due to Medical Issues,Slow Progress due to Activity Tolerance,Slow Progress due to Cognition Assessment Summary Pt overall improving with her mobility needs and now MODA to stand but still needing lots of vc for safety with FWW and overall safety awareness. Pt will benefit from 12/12 assist at home versus short skilled rehab pending pt's 's ability to assist her. Pt's daughter able to show good safety and understanding to assist pt for ADL and mobility needs however will not be there to assist after the end of this weekend. Goals Self-Feeding Goal Independent Grooming Goal Independent Dressing Goal Minimal Assistance,Metal Tube Cutter, Sock Aid Toileting Goal Standby Assistance Bathing Goal Minimal Assistance Toilet Transfer Goal Standby Assistance Shower Transfer Goal Standby Assistance Days to Meet Goals 15 Frequency of Treatment Frequency Of Treatment Once a Day Treatment Plan OT Treatment Plan ADL Training,Functional Cognition Training,Functional Mobility,Patient/Family Education,Discharge Planning Discharge Recommendations OT Discharge Recommendations SNF Rehab Home Equipment Needs LB dressing equipment, BSC, shower chair Transportation Needs at Discharge Private Vehicle,Wheelchair/ Cabulance
--- NOTE | 2023-08-24 13:45 | CM.DPC ---
DCP Cont. Reviewed EMR and team rounds for status updates. [facility] pt [facility] placement, pending [facility] authorization. Will f/u with [facility] in the morning and hopefully assist with pt d/c tomorrow.
--- NOTE | 2023-08-24 14:00 | PT.IPTN ---
Current Diagnoses Unilateral primary osteoarthritis, right knee (08/22/23) Presence of unspecified artificial knee joint (08/22/23) Surgery Performed Operation Date: 08/22/23 13:15 Actual Procedures p Total Knee Arthroplasty - Robot(Right) - Faith Matthew MD Physical Therapy Treatment Note M2 PT-IP Current Condition Start: 08/23/23 10:47 Freq: NEEDED Status: Active Protocol: Document 08/23/23 08:35 AB (Rec: 08/23/23 11:01 AB [id number]) Physical Therapy Current Condition Current Condition Evaluation Date 08/23/23 Treatment Diagnosis s/p R TKA; difficulty in walking Onset Date 08/22/23 M3 PT-IP Subjective Start: 08/23/23 10:47 Freq: NEEDED Status: Active Protocol: Document 08/24/23 14:26 TS (Rec: 08/24/23 14:31 TS [id number]) Subjective Physical Therapy Visit Type Type Treatment Note Visit Start Time 14:00 Visit Stop Time 14:16 Number of LOCKSTITCH BINDER Visits 2 Physical Therapy Visit Comments Patient Comments Pt found resting in chair, reports being tired and refused mobility but agreeable to ther ex. Therapy Pain Assessment Pain When Pain Assessed At Rest Pain Present Pain Present Pain Reported M4 PT-IP Mobility and Gait Start: 08/23/23 10:47 Freq: NEEDED Status: Active Protocol: Document 08/24/23 14:26 TS (Rec: 08/24/23 14:31 TS [id number]) PT-Balance Assessment Sitting Balance and Reactions Static Sitting Balance Ability Good Dynamic Sitting Balance Ability Fair M5 PT-IP Objective Assessments Start: 08/23/23 10:47 Freq: NEEDED Status: Active Protocol: Document 08/23/23 08:35 AB (Rec: 08/23/23 11:01 AB [id number]) Orientation Orientation/Cognition Level of Alertness Alert Orientation Name,Place,Situation Safety Awareness Decreased Safety Awareness Memory Description Short Term Impaired Gross Range of Motion Lower Extremity ROM Assessment Right Impaired Impairments R knee flexion: ~ 40 deg R knee extension: ~ 20 deg less to 0 Strength Lower Extremity Strength Assessment Right Impaired Hip 3-/5 Knee 3/5 Sensation Assessment Sensation Gross Sensation Right LE Impaired Sensation Description Numbness Comments Sensation Comments c/o R upper thigh and knee numbness Muscle Tone Muscle Tone WNL Yes M6 PT-IP Treatment Start: 04/03/24 10:47 Freq: NEEDED Status: Active Protocol: Document 08/24/23 14:26 TS (Rec: 08/24/23 14:31 TS [id number]) Physical Therapy Treatment Exercises Exercises Ankle Pumps,Quad Sets,Heel Slides,Straight Leg Raises Education Education Provided Post-Op Packet,Safety Other Treatments Other Treatment Performed Pt performed ankle pumps, quad sets, heel slides, SLR and passive knee ext. Pt demonstrates poor carryover of sequencing and requires cues for all ther ex. M7 PT-IP Assessment and Plan Start: 08/23/23 10:47 Freq: NEEDED Status: Active Protocol: Document 08/24/23 14:26 TS (Rec: 08/24/23 14:31 TS [id number]) PT Summary Assessment and Plan Potential Rehabilitation Potential Fair Summary Impairments Pain,ROM,Strength,Balance, Coordination,Sensation,Tone, Cognition,Bed Mobility, Transfers,Gait,Activity Tolerance Progress Towards Goals Progressing Toward Goals Assessment Summary Janae refused mobility this session due to fatigue but was agreeable to ther ex. She performed ankle pumps, quad sets, heel slides, SLR and passive knee ext. She was educated on the intensity and frequency of post-op ex. Attempted to set up caregiver training for tomorrow and 10: 15AM, spouse did not answer phone. Requested pt or daughter to inform nrusing if that is possible. PT is recommending Home 12/12 vs SNF. Goals Bed Mobility Goal Independent Transfer Goal Minimal Assistance,Front Wheeled Walker Gait Goal Minimal Assistance,Front Wheel Walker Gait Distance 50 Other Goals improve transfers and ambulation using FWW mod I ~ 200 ft up/down 1 step using fWW SBA Days to Meet Goals 5 Frequency of Treatment Frequency Of Treatment Twice a Day Treatment Plan Physical Therapy Treatment Plan Bed Mobility Training,Transfer Training,Gait Training, Therapeutic Exercise,Balance Retraining,Post Op Education, Discharge Planning,Hot or Cold Pack,Neuromuscular Re-ed, Coordination Retraining,Manual Therapy Weight Bearing Status Weight Bearing Status Weight Bear as Tolerated Allowed Weight Bearing Amount (enter % RLE WBAT or #) (%) Recommendations To Nursing Amount of Assist Needed 1 Person Assist Discharge Recommendations PT Discharge Recommendations Home with 24 Assist Available,Home Health,SNF Rehab,Home vs SNF Transportation Needs at Discharge Private Vehicle,Wheelchair/ Cabulance
[2023-08-24] MEDS: polyethylene glycoL 3350 17 GM POWD.PACK PO (21:21)
[2023-08-24] MEDS: OXYCODONE IR 5 MG TABLET PO (22:08)
[2023-08-25] MEDS: ACETAMINOPHEN 325 MG TABLET 650 MG PO ×2 (01:08→08:09)
[2023-08-25] MEDS: OXYCODONE IR 5 MG TABLET PO ×3 (01:09→10:09)
[2023-08-25 05:32] LABS: INR 1.3 (0.9-1.3); Prothrombin Time 15.3 SECONDS (9.4-12.5)
[2023-08-25] MEDS: PANTOPRAZOLE DR 20 MG TABLET PO (06:19)
[2023-08-25] MEDS: POTASSIUM CHLORIDE 10 MEQ TAB PO (08:10)
[2023-08-25] MEDS: FUROSEMIDE 20 MG TABLET 40 MG PO (08:10)
[2023-08-25] MEDS: OXYMETAZOLINE NASAL SPRAY 30 ML 2 SPRAYS NASAL (08:17)
--- NOTE | 2023-08-25 08:33 | PC.NURSE ---
Addendum entered by Akiko Maldonado R.N. 08/25/23 09:53: nose bleed subsided after Afrin spray. Pt sleeping; asked to wait on some PO meds. Original Note: 0730: pt has a bloody left nostril. When she takes pressure off and tissue away from nostril, blood streams out. PT 15.3, INR 1.3. LVM with [facility] PAC and spoke to Dr. Matthew. Orders received for Afrin prn. 0830 bleeding has slowed. Tissue plug in left nostril; HOB elevated. Pt reports shakiness. Juice given.
[2023-08-25 08:35] VITALS: BP 148/63; PULSE 106; TEMP 37.1
--- NOTE | 2023-08-25 08:51 | PM.DS.1 ---
History of Present Illness History of Present Illness Date Patient Seen: 08/25/23 Time Patient Seen: 08:51 Chief complaint: Right Total Knee Arthroplasty - Robot Narrative: Procedure: right total knee arthroplasty Same procedure as scheduled: Yes Indications: The patient has had progressively worsening right knee pain with radiographic changes consistent with arthritis. Non-operative management has failed and the patient has requested total knee replacement. The risks, benefits and alternatives to surgery were discussed with the patient prior to proceeding. Risks discussed included, but were not limited to, failure to relieve pain, stiffness, infection, nerve damage, deep venous thrombosis, pulmonary embolism, stroke, coma, heart attack, permanent paralysis and , as well as the potential need for eventual revision of the prosthetic. Surgeon: Faith Matthew Assistant Offset Press Operator: Enrique Schmidt Anesthesia Type: General Operative Notes Findings: Severe right knee osteoarthritis, good stability, mild bleeding Closure Type: primary Specimen(s): none sent Prosthetic devices, grafts, tissues, transplants, or devices: Size 5 femur, size 4 tibia, +9 poly, 32 x 7-1/2 mm patella Estimated Blood Loss (mL): 250 Blood products transfused: none Discharge Providers Provider Date of admission: 08/22/2023 Discharge Date: 08/25/23 Primary care physician: ALISON Lincoln FNP-C Consults: 08/09/23 12:37 Consult to Anesthesiology Routine Comment: Consulting Provider: Anesthesiologist Reason for consultation: Surgeon requested re: Cardiac history 08/22/23 06:45 Consult to Anesthesiology Routine Comment: Consulting Provider: Anesthesiologist Reason for consultation: Regional block for post operative pain control Has provider been notified: No 08/22/23 19:52 Consult to Discharge Planning Routine Comment: Needs SNF; will get anticoag plan from office Consult to Occupational Therapy Evaluate & Treat Comment: Physician Instructions: Evaluate and treat Consult to Physical Therapy Evaluate & Treat Comment: Physician Instructions: postop TKA protocol Discharge provider: Enrique Schmidt PA-C Summary Hospital Course Discharge Diagnosis: Status post right knee total arthroplasty Hospital Course: Multi-modal pain relief. PT. Epistaxis. Status at Discharge Cognitive/behavioral status at discharge: oriented Functional status at discharge: uses cane/walker Overall status at discharge: patient is back to baseline Time Spent with Patient Time spent: Less than 30 minutes Exam Vital Signs (past 8 hours): - 08/25/23 08:35 Temperature 98.8 F Pulse Rate 106 H Blood Pressure 148/63 H Oxygen Delivery Method Nasal Cannula Oxygen Flow Rate 0 Narrative Exam Narrative: Patient was found today with a spontaneous epistaxis under control with applied pressure. There was no trauma. Besides the nose bleed, the patient complains more of back and right hip pain than knee pain. Pain is controlled with oral medications and she is able to ambulate with the walker and use the toilet. Dressing appears clean and dry. Sensation grossly intact to light touch throughout the right lower extremity. Patient is able to dorsiflex and plantarflex against resistanace. Resp Effort & Inspection: normal respiratory effort and able to speak in complete sentences Objective Labs 08/23/23 05:30 08/22/23 13:34 Labs: Laboratory Results - last 24 hr 08/25/23 04:35 PT 15.3 H INR 1.3 PFSH Medical History Mitral valve stenosis Skin cancer Osteoarthritis Hypothyroidism Pre-diabetes Acid reflux Diverticulosis HLD (hyperlipidemia) HTN (hypertension) Surgical History H/O aortic valve replacement (1999) Hx of vein stripping History of total left knee replacement Social History household members: spouse Smoking Status: Former smoker alcohol intake: current Discharge Assessment & Plan Assessment and Plan Assessment: Status post right knee total arthroplasty Plan of Treatment: Epistaxis controlled with applied pressure and tamponade. Patient will discontinue enoxaparin once IRN is between 2.0 and 3.0 and continue with warfarin at 5mg daily except for 1 day a week at 10mg. Discharge to SNF to manage Medical comorbidities and rehabilitate right knee. Prescribed oxycodone 5mg to take every 4 hours as needed for pain. Attend outpatient PT once released from SNF. Follow up with SNO in 2 weeks for wound check. Discharge Plan Discharge Plan Patient Disposition: SNF Transfer to: [facility] certify the [facility] care is medically necessary on a continuing basis for any conditions for which he/ she received care during this hospitalization.: Yes The receiving facility has agreed to accept transfer and provide medical treatment.: Yes Discharge orders & Medications Discharge Orders: Discharge (Order); Ordered 08/25/23 Ordered By: Enrique Schmidt Prescriptions: New oxycodone 5 mg Tablet 5 mg PO Q4H Qty: 40 0RF acetaminophen 325 mg Tablet 650 mg PO Q6H PRN (Reason: Pain) Qty: 90 0RF Continued enalapril maleate 10 mg tablet 10 mg PO DAILY furosemide 20 mg tablet 40 mg PO DAILY lovastatin 20 mg tablet 20 mg PO DAILY omeprazole 20 mg capsule,delayed release(DR/EC) 20 mg PO DAILY potassium chloride 10 mEq tablet extended release 10 meq PO DAILY warfarin [Coumadin] 5 mg Tablet 5 mg PO DAILY Patient Comments: 10mg one day a week, 5mg rest alendronate 70 mg Tablet 70 mg PO QWEEK enoxaparin 100 mg/mL syringe 100 mg SUBCUT DAILY Patient Comments: [NO ORIGINAL SIG] Rx Instructions: pt does not know dose Follow up/Referrals: Aidee Niño ARNP, HOISTING ENGINE OPERATOR-C [Primary Care Provider] - Faith Matthew MD [Physician] - 08/31/23 11:00 am (Follow up at [facility] office in [place].) Diet/Activity/Treatments Diet: Diet as Tolerated Activity: Walk frequently! Cold/Heat Therapy: Ice to knee as needed for pain. Skin/Wound/Dressing Care Report to your healthcare provider any signs of infection, such as:: chills, fever, night sweats, unusual drainage and unusual redness Dressing: May remove JONG wrap and shower on 08/25/2023. [facility] Reason for rehabilitation: Post-operative therapy Rehab type: Physical therapy Visit Report/Discharge Packet Instructions: DI for Knee Replacement Stand Alone Forms: Surgery Discharge Discharge Data Primary Care Provider: Aidee Niño Attending Provider: Faith Matthew
--- NOTE | 2023-08-25 09:15 | CM.DPC ---
DCP Cont. Reviewed EMR and team rounds for status updates. Called [facility], they have recieved the [facility] prior-auth for placement, and they set-up transport for 1:00pm discharge. Will fax orders and PASSAR. [facility] Auth# [id number]
[2023-08-25] MEDS: ENALAPRIL 5 MG TABLET 10 MG PO (09:30)
[2023-08-25] MEDS: DOCUSATE 100 MG CAPSULE PO (10:05)
[2023-08-25] MEDS: polyethylene glycoL 3350 17 GM POWD.PACK PO (10:05)
[2023-08-25] MEDS: ATORVASTATIN 20 MG TABLET 10 MG PO (10:07)
[2023-08-25 10:44] VITALS: BP 131/68; PULSE 108
--- NOTE | 2023-08-25 11:07 | PT.IPTN ---
Current Diagnoses Unilateral primary osteoarthritis, right knee (08/22/23) Presence of unspecified artificial knee joint (08/22/23) Surgery Performed Operation Date: 08/22/23 13:15 Actual Procedures p Total Knee Arthroplasty - Robot(Right) - Faith Matthew MD Physical Therapy Treatment Note M2 PT-IP Current Condition Start: 08/23/23 10:47 Freq: NEEDED Status: Active Protocol: Document 08/23/23 08:35 AB (Rec: 08/23/23 11:01 AB [id number]) Physical Therapy Current Condition Current Condition Evaluation Date 08/23/23 Treatment Diagnosis s/p R TKA; difficulty in walking Onset Date 08/22/23 M3 PT-IP Subjective Start: 08/23/23 10:47 Freq: NEEDED Status: Active Protocol: Document 08/25/23 11:45 TS (Rec: 08/25/23 11:52 TS [id number]) Subjective Physical Therapy Visit Type Type Treatment Note Visit Start Time 11:07 Visit Stop Time 11:31 Number of COLLECTION SYSTEMS CONSULTANT Visits 3 Physical Therapy Visit Comments Patient Comments Pt found resting in chair, reports she is leaving for rehab this afternoon, is agreeable to PT. Therapy Pain Assessment Pain When Pain Assessed At Rest Pain Present Pain Present Pain Reported M4 PT-IP Mobility and Gait Start: 08/23/23 10:47 Freq: NEEDED Status: Active Protocol: Document 08/25/23 11:45 TS (Rec: 08/25/23 11:52 TS [id number]) PT-Transfer Assessment Sit to and From Stand Sit to and from Stand Minimal Assistance,Moderate Assistance,1 Person Assistance Equipment Transfer Assistive Device Straight Cane,Front Wheeled Walker Orthotic/Prosthetic Devices or Brace: No Comments Mobility Comments She performed ankle pumps, quad sets and heel slides, does not dmeonstrate good carryover of ther ex and requires cues for sequencing. She performed STS x1MinA and x1 ModA from chair with FWW. She has difficulty transitioning UE's to FWW from sitting. She ambulated ~15' SBA with slow step to gait, pt reported increased pain and requested to sit in chair. pt was left in chair, all needs met. Gait Assessment Gait Gait Assistance Required: Standby Assistance Distance (Feet) 15 Able to Maintain Weight Bearing Status Yes During Gait Assistive Devices Assistive Device Gait Belt,Front Wheeled Walker Orthotic/Prosthetic Devices or Brace: No Gait Deviations General Gait Pattern Antalgic,Decreased Stride Length,Decreased Feet Clearance Factors Limiting Gait Function Factors Limiting Gait Function Decreased Activity Tolerance, Decreased Strength,Difficulty Following Directions,Limited Range of Motion,Pain,Poor Balance,Poor Safety Awareness Comments Gait Comments See mobility comments PT-Balance Assessment Sitting Balance and Reactions Static Sitting Balance Ability Good Dynamic Sitting Balance Ability Fair Standing Balance and Reactions Static Standing Balance Ability Fair Dynamic Standing Balance Ability Fair Device Used FWW M5 PT-IP Objective Assessments Start: 08/23/23 10:47 Freq: NEEDED Status: Active Protocol: Document 08/23/23 08:35 AB (Rec: 08/23/23 11:01 AB [id number]) Orientation Orientation/Cognition Level of Alertness Alert Orientation Name,Place,Situation Safety Awareness Decreased Safety Awareness Memory Description Short Term Impaired Gross Range of Motion Lower Extremity ROM Assessment Right Impaired Impairments R knee flexion: ~ 40 deg R knee extension: ~ 20 deg less to 0 Strength Lower Extremity Strength Assessment Right Impaired Hip 3-/5 Knee 3/5 Sensation Assessment Sensation Gross Sensation Right LE Impaired Sensation Description Numbness Comments Sensation Comments c/o R upper thigh and knee numbness Muscle Tone Muscle Tone WNL Yes M6 PT-IP Treatment Start: 08/23/23 10:47 Freq: NEEDED Status: Active Protocol: Document 08/25/23 11:45 TS (Rec: 08/25/23 11:52 TS [id number]) Physical Therapy Treatment Exercises Exercises Ankle Pumps,Quad Sets,Heel Slides Education Education Provided Post-Op Packet,Safety M7 PT-IP Assessment and Plan Start: 08/23/23 10:47 Freq: NEEDED Status: Active Protocol: Document 08/25/23 11:45 TS (Rec: 08/25/23 11:52 [id number]) PT Summary Assessment and Plan Potential Rehabilitation Potential Fair Summary Impairments Pain,ROM,Strength,Balance, Coordination,Sensation,Tone, Cognition,Bed Mobility, Transfers,Gait,Activity Tolerance Progress Towards Goals Slow Progress due to Activity Tolerance Assessment Summary Janae is making slow progress with her mobility due to poor activity tolerance and strength. She continues to requrie Izabella-ModA for STS. She does demonstrate good carryover of STS technique. She continues to ambulate short distances in the room SBA with FWW and slow step to gait. PT continues to recommend Home 12/12 vs SNF. Goals Bed Mobility Goal Independent Transfer Goal Minimal Assistance,Front Wheeled Walker Gait Goal Minimal Assistance,Front Wheel Walker Gait Distance 50 Other Goals improve transfers and ambulation using FWW mod I ~ 200 ft up/down 1 step using fWW SBA Days to Meet Goals 5 Frequency of Treatment Frequency Of Treatment Twice a Day Treatment Plan Physical Therapy Treatment Plan Bed Mobility Training,Transfer Training,Gait Training, Therapeutic Exercise,Balance Retraining,Post Op Education, Discharge Planning,Hot or Cold Pack,Neuromuscular Re-ed, Coordination Retraining,Manual Therapy Weight Bearing Status Weight Bearing Status Weight Bear as Tolerated Allowed Weight Bearing Amount (enter % RLE WBAT or #) (%) Recommendations To Nursing Amount of Assist Needed 1 Person Assist Discharge Recommendations PT Discharge Recommendations Home with 12/12 Assist Available,Home Health,SNF Rehab,Home vs SNF Transportation Needs at Discharge Private Vehicle,Wheelchair/ Cabulance
--- NOTE | 2023-08-25 13:00 | PC.NURSE ---
JAROCHOM to Fidel at [facility] to call back for report. Pt packed up and discharged with [facility]pr ambulance driver/transport
== END 2023-08-25 13:00 ==
LOC: OR 11:29 → AC 14:50
PROVIDERS: Physician Assistant; Student in an Organized Health Care Education/Training Program; PCP Nurse Practitioner Family; Referring Provider Orthopaedic Surgery; Visit Provider Orthopaedic Surgery
PROC: 0SRC0JZ Replacement of Right Knee Joint with Synthetic Substitute, Open Approach (ICD-10-PCS; CPT 27447; principal; 2023-08-22 13:15)
DX: M17.11 Unilateral primary osteoarthritis, right knee (principal); M25.761 Osteophyte, right knee; I11.0 Hypertensive heart disease with heart failure; Z79.01 Long term (current) use of anticoagulants
CPT/HCPCS: 27447; 20985; 36415; 73560; 80053; 85014; 85018; 85610; 85730; 97110; 97116; 97163; 97166; 97530; 97535; C1776; C9290; J0171; J0690; J1100; J1170; J1650; J2405; J2704; J3010